=== PATIENT | male | born 1950 | race Caucasian/White ===

== ENCOUNTER 2024-06-01 14:05 | Inpatient (IN) | payer MEDICARE ==
[~2024-06-01] VITALS: Ht 172.7 cm; Wt 97.5 kg
[2024-06-01 17:16] LABS: BASOPHILS # (AUTO) 0.1 (0.0-0.1); BASOPHILS % 0.7 % (0.0-1.0); EOSINOPHILS # (AUTO) 0.5 (0.0-0.4); HEMATOCRIT 35.6 % (38.2-49.6); HEMOGLOBIN 11.2 g/dL (14.0-18.0); LYMPHOCYTES # (AUTO) 1.9 (1.0-3.2); LYMPHOCYTES % 26.2 % (18.0-39.1); MEAN CORPUSCULAR HEMOGLOBIN 35.1 pg (28-32); MEAN CORPUSCULAR HGB CONC 31.5 g/dL (31-35); MEAN CORPUSCULAR VOLUME 111.6 fL (81-99); MONOCYTES # (AUTO) 0.7 (0.2-0.8); MONOCYTES % 9.6 % (4.4-11.3); NEUTROPHILS # (AUTO) 4.2 (2.1-6.9); PLATELET COUNT 138 x10e3/uL (140-360); RED BLOOD COUNT 3.19 x10e6/uL (4.3-5.7); RED CELL DISTRIBUTION WIDTH 14.9 % (11.7-14.4); WHITE BLOOD COUNT 7.41 x10e3/uL (4.8-10.8)
[2024-06-01 17:37] LABS: ALBUMIN 2.9 g/dL (3.5-5.0); ALBUMIN/GLOBULIN RATIO 0.7 (0.8-2.0); ANION GAP 13.8 mmol/L (8-16); BILIRUBIN,TOTAL 2.2 mg/dL (0.2-1.2); CALCIUM 8.8 mg/dL (8.4-10.2); CREATININE, SERUM 1.03 mg/dL (0.72-1.25); POTASSIUM 3.8 mmol/L (3.5-5.1); TOTAL PROTEIN 6.9 g/dL (6.5-8.1)
[2024-06-01 17:45] LABS: TROPONIN I 0.037 ng/mL (0-0.300)
[2024-06-01 18:05] VITALS: TEMP 99.3
[2024-06-01 18:10] VITALS: PULSE 99; RESP 16
[2024-06-01 18:20] LABS: INR 1.29; PROTHROMBIN TIME 16.7 seconds (11.9-14.5)
[2024-06-01 18:50] VITALS: PULSE 98; RESP 20; O2SAT 100
[2024-06-01] MEDS: Morphine 2mg Syringe 2 MG/ML SYR IV PRN (19:15)
[2024-06-01] MEDS: ONDANSETRON HCL INJ 2MG/ML 2ML 2 MG/ML VIAL IV PRN (19:15)
[2024-06-01] MEDS: Vancomycin IV 1.5 GM in SODIUM CHLORIDE 0.9% 250ML 250 ML IV ONE (19:39)
[2024-06-01 20:00] VITALS: BP 141/66; PULSE 88; RESP 18; TEMP 97.2; O2SAT 99
[2024-06-01] MEDS ORDERED: HYDRALAZINE HCL 20 MG/ML VIAL IV PRN ×2 (21:15→21:30)
[2024-06-01] MEDS: FUROSEMIDE INJ 10 MG/ML 4 ML VIAL IV ONE (23:56)
[2024-06-02] VITALS (10 sets, daily range): BP systolic 108–154; BP diastolic 52–71; PULSE 69–102; RESP 16–20; TEMP 97.2–98.9; O2SAT 95–100
[2024-06-02] MEDS ORDERED: VANCOMYCIN 1.25GM/250 ML (PEG) 250 ML IV SCH ×3 (03:15→08:00)
[2024-06-02 06:21] LABS: CHOL/HDL RATIO 2.8 (3.9-4.7)
[2024-06-02 06:27] LABS: TROPONIN I 0.028 ng/mL (0-0.300)
[2024-06-02 06:33] LABS: ALBUMIN 2.8 g/dL (3.5-5.0); ALBUMIN/GLOBULIN RATIO 0.7 (0.8-2.0); BASOPHILS # (AUTO) 0.1 (0.0-0.1); BASOPHILS % 1.3 % (0.0-1.0); BILIRUBIN,TOTAL 2.4 mg/dL (0.2-1.2); CALCIUM 9.9 mg/dL (8.4-10.2); CREATININE, SERUM 1.08 mg/dL (0.72-1.25); EOSINOPHILS # (AUTO) 0.4 (0.0-0.4); EOSINOPHILS % 5.6 % (0.0-6.0); HEMATOCRIT 34.9 % (38.2-49.6); HEMOGLOBIN 11.2 g/dL (14.0-18.0); LYMPHOCYTES # (AUTO) 1.6 (1.0-3.2); LYMPHOCYTES % 20.3 % (18.0-39.1); MEAN CORPUSCULAR HEMOGLOBIN 35.4 pg (28-32); MEAN CORPUSCULAR HGB CONC 32.1 g/dL (31-35); MEAN CORPUSCULAR VOLUME 110.4 fL (81-99); MONOCYTES % 12.2 % (4.4-11.3); NEUTROPHILS # (AUTO) 4.7 (2.1-6.9); NEUTROPHILS % 60.2 % (38.7-80.0); PLATELET COUNT 133 x10e3/uL (140-360); RED BLOOD COUNT 3.16 x10e6/uL (4.3-5.7); RED CELL DISTRIBUTION WIDTH 14.9 % (11.7-14.4); TOTAL PROTEIN 6.8 g/dL (6.5-8.1); WHITE BLOOD COUNT 7.87 x10e3/uL (4.8-10.8)
[2024-06-02] MEDS ORDERED: CARVEDILOL 12.5 MG TAB PO SCH (09:00)
[2024-06-02] MEDS: FUROSEMIDE INJ 10 MG/ML 4 ML VIAL IV SCH (09:56)
[2024-06-02] MEDS: CARVEDILOL 3.125 MG TAB PO SCH (09:57)
[2024-06-02] MEDS: ASPIRIN 81 MG CHEW TAB PO SCH (09:57)
[2024-06-02 11:28] LABS: ANISOCYTOSIS SLIGHT; PLATELET ESTIMATE ADEQUATE; PLATELET MORPHOLOGY COMMENT NORMAL
[2024-06-02 14:58] LABS: POTASSIUM 4.4 mmol/L (3.5-5.1)
[2024-06-02 14:59] LABS: ANION GAP 19.4 mmol/L (8-16)
[2024-06-02] MEDS: VANCOMYCIN 1.25GM/250 ML (PEG) 250 ML IV SCH (15:48)
[2024-06-02] MEDS: ENOXAPARIN SOD INJ 40 MG/0.4 ML SYR SC SCH (16:56)
[2024-06-02] MEDS: ACETAMINOPHEN 325 MG TAB PO PRN (18:03)
[2024-06-03] VITALS (7 sets, daily range): BP systolic 118–144; BP diastolic 55–73; PULSE 75–94; RESP 17–20; TEMP 98.1–99.4; O2SAT 96–99
[2024-06-03] MEDS: TRAMADOL HCL 50 MG TAB PO PRN (04:52)
[2024-06-03 06:20] LABS: BASOPHILS # (AUTO) 0.1 (0.0-0.1); BASOPHILS % 1.2 % (0.0-1.0); EOSINOPHILS # (AUTO) 0.4 (0.0-0.4); EOSINOPHILS % 6.1 % (0.0-6.0); HEMOGLOBIN 11.3 g/dL (14.0-18.0); LYMPHOCYTES # (AUTO) 1.2 (1.0-3.2); LYMPHOCYTES % 16.4 % (18.0-39.1); MEAN CORPUSCULAR HEMOGLOBIN 35.8 pg (28-32); MEAN CORPUSCULAR HGB CONC 32.3 g/dL (31-35); MEAN CORPUSCULAR VOLUME 110.8 fL (81-99); MONOCYTES # (AUTO) 0.8 (0.2-0.8); MONOCYTES % 10.3 % (4.4-11.3); NEUTROPHILS # (AUTO) 4.8 (2.1-6.9); NEUTROPHILS % 65.6 % (38.7-80.0); PLATELET COUNT 110 x10e3/uL (140-360); RED BLOOD COUNT 3.16 x10e6/uL (4.3-5.7); RED CELL DISTRIBUTION WIDTH 14.7 % (11.7-14.4); WHITE BLOOD COUNT 7.27 x10e3/uL (4.8-10.8)
[2024-06-03 06:33] LABS: CALCIUM 8.7 mg/dL (8.4-10.2); CREATININE, SERUM 1.39 mg/dL (0.72-1.25)
[2024-06-03 08:53] LABS: PLATELET ESTIMATE ADEQUATE; PLATELET MORPHOLOGY COMMENT NORMAL; RBC MORPHOLOGY COMMENT NORMAL
[2024-06-04] VITALS (8 sets, daily range): BP systolic 124–132; BP diastolic 59–81; PULSE 53–86; RESP 18–20; TEMP 97.7–98.6; O2SAT 95–100
[2024-06-04 06:29] LABS: ANION GAP 13.7 mmol/L (8-16); CALCIUM 8.3 mg/dL (8.4-10.2); CREATININE, SERUM 1.56 mg/dL (0.72-1.25); POTASSIUM 3.7 mmol/L (3.5-5.1)
[2024-06-04] MEDS: FUROSEMIDE 20 MG TAB PO SCH (08:52)
[2024-06-04] MEDS: DAPTOMYCIN 500mg 10ML 500 MG in SODIUM CHLORIDE 0.9% 100 ML IV SCH (11:40)
[2024-06-04] MEDS: SODIUM CHLORIDE 0.9% 250ML 250 ML IV ONE (11:41)
[2024-06-05] VITALS (7 sets, daily range): BP systolic 123–139; BP diastolic 46–66; PULSE 75–83; RESP 20–22; TEMP 97.9–98.5; O2SAT 92–100
[2024-06-05 06:27] LABS: BASOPHILS # (AUTO) 0.1 (0.0-0.1); BASOPHILS % 1.3 % (0.0-1.0); EOSINOPHILS # (AUTO) 0.4 (0.0-0.4); EOSINOPHILS % 5.6 % (0.0-6.0); HEMATOCRIT 32.5 % (38.2-49.6); HEMOGLOBIN 10.5 g/dL (14.0-18.0); LYMPHOCYTES # (AUTO) 1.6 (1.0-3.2); LYMPHOCYTES % 22.9 % (18.0-39.1); MEAN CORPUSCULAR HEMOGLOBIN 35.7 pg (28-32); MEAN CORPUSCULAR HGB CONC 32.3 g/dL (31-35); MEAN CORPUSCULAR VOLUME 110.5 fL (81-99); MONOCYTES # (AUTO) 0.7 (0.2-0.8); MONOCYTES % 10.7 % (4.4-11.3); NEUTROPHILS % 59.1 % (38.7-80.0); PLATELET COUNT 107 x10e3/uL (140-360); RED BLOOD COUNT 2.94 x10e6/uL (4.3-5.7); RED CELL DISTRIBUTION WIDTH 14.8 % (11.7-14.4); WHITE BLOOD COUNT 6.82 x10e3/uL (4.8-10.8)
[2024-06-05 06:55] LABS: ALBUMIN 2.3 g/dL (3.5-5.0); ALBUMIN/GLOBULIN RATIO 0.6 (0.8-2.0); BILIRUBIN,TOTAL 1.3 mg/dL (0.2-1.2); CALCIUM 8.3 mg/dL (8.4-10.2); CREATININE, SERUM 1.19 mg/dL (0.72-1.25); TOTAL PROTEIN 6.1 g/dL (6.5-8.1)
[2024-06-05] MEDS: LEVOFLOXACIN 500 MG TAB PO SCH (13:23)
[2024-06-05] MEDS: DOCUSATE SODIUM 100 MG CAP PO SCH (13:27)
[2024-06-05] MEDS: BISACODYL 5 MG TAB EC PO ONE (13:27)
[2024-06-05] MEDS: ONDANSETRON HCL INJ 2MG/ML 2ML 2 MG/ML VIAL IV PRN (20:06)
[2024-06-06] VITALS (9 sets, daily range): BP systolic 117–142; BP diastolic 48–65; PULSE 65–78; RESP 18–21; TEMP 97.3–98.5; O2SAT 93–100
[2024-06-06 07:45] LABS: HEPATITIS B CORE AB TOTAL Negative; HEPATITIS B SURFACE AG (P) Negative
[2024-06-06] MEDS ORDERED: FENTANYL CITRATE/PF 100MCG/2 ML INJ ONE (14:01)
[2024-06-06] MEDS ORDERED: PROPOFOL IV EMULSION 10 MG/ML 20 ML VIAL ONE ×2 (16:07→16:54)
[2024-06-06] MEDS: FENTANYL CITRATE/PF 100MCG/2 ML INJ ONE (16:47)
[2024-06-06] MEDS ORDERED: LIDOCAINE HCL 2% LOCAL INJ 5 ML SDV VIAL INJ ONE (16:54)
[2024-06-06] MEDS ORDERED: SEVOFLURANE INHAL SOLN 250 ML PEN BTL ONE (16:54)
[2024-06-07] VITALS (8 sets, daily range): BP systolic 120–136; BP diastolic 49–67; PULSE 61–72; RESP 17–20; TEMP 97–97.9; O2SAT 94–100
[2024-06-07] MEDS: FUROSEMIDE 20 MG TAB PO SCH (12:00)
[2024-06-08] VITALS (7 sets, daily range): BP systolic 92–146; BP diastolic 33–71; PULSE 60–118; RESP 17–20; TEMP 97.6–98.7; O2SAT 95–100
[2024-06-08 05:09] LABS: BASOPHILS # (AUTO) 0.1 (0.0-0.1); BASOPHILS % 0.9 % (0.0-1.0); EOSINOPHILS # (AUTO) 0.6 (0.0-0.4); EOSINOPHILS % 7.4 % (0.0-6.0); HEMATOCRIT 31.8 % (38.2-49.6); HEMOGLOBIN 10.2 g/dL (14.0-18.0); LYMPHOCYTES # (AUTO) 1.6 (1.0-3.2); LYMPHOCYTES % 18.7 % (18.0-39.1); MEAN CORPUSCULAR HEMOGLOBIN 35.7 pg (28-32); MEAN CORPUSCULAR HGB CONC 32.1 g/dL (31-35); MEAN CORPUSCULAR VOLUME 111.2 fL (81-99); MONOCYTES # (AUTO) 0.7 (0.2-0.8); MONOCYTES % 8.4 % (4.4-11.3); NEUTROPHILS # (AUTO) 5.4 (2.1-6.9); NEUTROPHILS % 64.4 % (38.7-80.0); PLATELET COUNT 116 x10e3/uL (140-360); RED BLOOD COUNT 2.86 x10e6/uL (4.3-5.7); RED CELL DISTRIBUTION WIDTH 14.5 % (11.7-14.4); WHITE BLOOD COUNT 8.43 x10e3/uL (4.8-10.8)
[2024-06-08 05:54] LABS: ALBUMIN 2.4 g/dL (3.5-5.0); ALBUMIN/GLOBULIN RATIO 0.6 (0.8-2.0); ANION GAP 10.2 mmol/L (8-16); BILIRUBIN,TOTAL 0.9 mg/dL (0.2-1.2); CALCIUM 8.6 mg/dL (8.4-10.2); CREATININE, SERUM 1.28 mg/dL (0.72-1.25); POTASSIUM 4.2 mmol/L (3.5-5.1); TOTAL PROTEIN 6.5 g/dL (6.5-8.1)
[2024-06-08] MEDS ORDERED: ASPIRIN CHEW81 MG PO (11:07)
[2024-06-08] MEDS ORDERED: LEVOFLOXACIN500 MG PO (11:07)
[2024-06-08] MEDS ORDERED: DOXYCYCLINE HY100 MG PO (11:07)
[2024-06-08] MEDS ORDERED: COREG3.125 MG PO (11:07)
[2024-06-08] MEDS ORDERED: LASIX20 MG PO (11:10)
[2024-06-09] VITALS (7 sets, daily range): BP systolic 108–149; BP diastolic 52–66; PULSE 63–77; RESP 17–20; TEMP 97.9–98.6; O2SAT 95–100
[2024-06-09 05:48] LABS: ANION GAP 12.4 mmol/L (8-16); CALCIUM 8.6 mg/dL (8.4-10.2); CREATININE, SERUM 1.34 mg/dL (0.72-1.25); POTASSIUM 4.4 mmol/L (3.5-5.1)
[2024-06-09] MEDS: SODIUM CHLORIDE 0.9% 250ML 250 ML ONE (09:47)
[2024-06-09] MEDS: HYDROCODONE/APAP 5MG-325MG TAB PO PRN (13:59)
[2024-06-09] MEDS: GABAPENTIN 100 MG CAP PO SCH (14:00)
[2024-06-10] VITALS (7 sets, daily range): BP systolic 124–136; BP diastolic 46–65; PULSE 63–72; RESP 17–20; TEMP 97.8–99.6; O2SAT 93–100
[2024-06-10 05:17] LABS: HEMATOCRIT 35.3 % (38.2-49.6); HEMOGLOBIN 10.8 g/dL (14.0-18.0); MEAN CORPUSCULAR HEMOGLOBIN 35.4 pg (28-32); MEAN CORPUSCULAR HGB CONC 30.6 g/dL (31-35); MEAN CORPUSCULAR VOLUME 115.7 fL (81-99); PLATELET COUNT 100 x10e3/uL (140-360); RED BLOOD COUNT 3.05 x10e6/uL (4.3-5.7); RED CELL DISTRIBUTION WIDTH 14.7 % (11.7-14.4)
[2024-06-10 05:50] LABS: ALBUMIN 2.2 g/dL (3.5-5.0); ALBUMIN/GLOBULIN RATIO 0.6 (0.8-2.0); BILIRUBIN,TOTAL 1.3 mg/dL (0.2-1.2); CALCIUM 8.7 mg/dL (8.4-10.2); CREATININE, SERUM 1.36 mg/dL (0.72-1.25)
[2024-06-10 06:30] LABS: BASOPHILS % (MANUAL) 1 % (0-1.5); EOSINOPHILS % (MANUAL) 10 % (0-7); LYMPHOCYTES % (MANUAL) 31 % (19-48); MONOCYTES % (MANUAL) 3 % (3.4-9.0); NEUTROPHILS % (MANUAL) 54 % (40-74); REACTIVE LYMPHOCYTES 1
[2024-06-10 06:31] LABS: HYPOCHROMASIA SLIGHT; PLATELET ESTIMATE ADEQUATE; PLATELET MORPHOLOGY COMMENT NORMAL; RBC MORPHOLOGY COMMENT ABNORMAL; SPHEROCYTES MODERATE
[2024-06-10] MEDS ORDERED: LACTULOSE SYRUP 20 GM/30 ML UDC PO PRN (13:15)
[2024-06-10] MEDS: POLYETHYLENE GLYCOL 3350 17 GM PACK PO ONE (14:49)
[2024-06-11] VITALS (9 sets, daily range): BP systolic 103–156; BP diastolic 46–69; PULSE 61–71; RESP 18–21; TEMP 98–99.6; O2SAT 96–100
[2024-06-11] MEDS: ENOXAPARIN SOD INJ 40 MG/0.4 ML SYR SC SCH (16:49)
[2024-06-11] MEDS ORDERED: MAGNESIUM/ALUMINUM/SIMETHICONE 30 ML UDC PO PRN (22:00)
[2024-06-12] VITALS (8 sets, daily range): BP systolic 116–154; BP diastolic 49–60; PULSE 62–81; RESP 17–20; TEMP 98.1–98.7; O2SAT 95–99
[2024-06-13] VITALS (8 sets, daily range): BP systolic 112–135; BP diastolic 43–80; PULSE 51–97; RESP 15–20; TEMP 97.7–98.9; O2SAT 97–100
[2024-06-13] MEDS: DAPTOMYCIN 500mg 10ML 500 MG in SODIUM CHLORIDE 0.9% 100 ML IV SCH (16:59)
[2024-06-14] VITALS (8 sets, daily range): BP systolic 123–138; BP diastolic 52–75; PULSE 63–66; RESP 16–20; TEMP 97.8–99.2; O2SAT 95–100
[2024-06-14 05:30] LABS: HEMATOCRIT 32.3 % (38.2-49.6); HEMOGLOBIN 10.2 g/dL (14.0-18.0); MEAN CORPUSCULAR HEMOGLOBIN 35.1 pg (28-32); MEAN CORPUSCULAR HGB CONC 31.6 g/dL (31-35); PLATELET COUNT 112 x10e3/uL (140-360); RED BLOOD COUNT 2.91 x10e6/uL (4.3-5.7); RED CELL DISTRIBUTION WIDTH 14.6 % (11.7-14.4); WHITE BLOOD COUNT 6.96 x10e3/uL (4.8-10.8)
[2024-06-14 06:01] LABS: ALBUMIN 2.2 g/dL (3.5-5.0); ALBUMIN/GLOBULIN RATIO 0.6 (0.8-2.0); ANION GAP 10.4 mmol/L (8-16); BILIRUBIN,TOTAL 1.2 mg/dL (0.2-1.2); CALCIUM 8.5 mg/dL (8.4-10.2); CREATININE, SERUM 1.41 mg/dL (0.72-1.25); POTASSIUM 4.4 mmol/L (3.5-5.1); TOTAL PROTEIN 5.9 g/dL (6.5-8.1)
[2024-06-14 10:09] LABS: BASOPHILS % (MANUAL) 1 % (0-1.5); EOSINOPHILS % (MANUAL) 18 % (0-7); LYMPHOCYTES % (MANUAL) 23 % (19-48); MONOCYTES % (MANUAL) 6 % (3.4-9.0); NEUTROPHILS % (MANUAL) 52 % (40-74)
[2024-06-14 10:10] LABS: PLATELET ESTIMATE SLIGHTLY DECREASED; PLATELET MORPHOLOGY COMMENT NORMAL; RBC MORPHOLOGY COMMENT NORMAL
[2024-06-14] MEDS ORDERED: GABAPENTIN100 MG PO (12:45)
[2024-06-14] MEDS ORDERED: ULTRAM 50MG50 MG PO (12:45)
[2024-06-15] VITALS (7 sets, daily range): BP systolic 111–129; BP diastolic 57–66; PULSE 62–76; RESP 18–21; TEMP 97.7–99.3; O2SAT 95–99
[2024-06-15 06:21] LABS: ANION GAP 12.3 mmol/L (8-16); CALCIUM 8.7 mg/dL (8.4-10.2); CREATININE, SERUM 1.5 mg/dL (0.72-1.25); POTASSIUM 4.3 mmol/L (3.5-5.1)
[2024-06-16] VITALS (7 sets, daily range): BP systolic 116–142; BP diastolic 41–76; PULSE 53–72; RESP 18–22; TEMP 97.6–99.8; O2SAT 97–98
[2024-06-16] MEDS: AMOXICILLIN/CLAVULANATE K 875 MG TAB PO SCH (10:02)
[2024-06-16] MEDS: TRAMADOL HCL 50 MG TAB PO PRN (15:48)
[2024-06-17] VITALS (7 sets, daily range): BP systolic 113–148; BP diastolic 47–64; PULSE 56–69; RESP 18–19; TEMP 97.7–98.8; O2SAT 97–100
[2024-06-17 06:21] LABS: HEMATOCRIT 32.5 % (38.2-49.6); HEMOGLOBIN 10.1 g/dL (14.0-18.0); MEAN CORPUSCULAR HEMOGLOBIN 34.9 pg (28-32); MEAN CORPUSCULAR HGB CONC 31.1 g/dL (31-35); MEAN CORPUSCULAR VOLUME 112.5 fL (81-99); PLATELET COUNT 111 x10e3/uL (140-360); RED BLOOD COUNT 2.89 x10e6/uL (4.3-5.7); RED CELL DISTRIBUTION WIDTH 14.4 % (11.7-14.4); WHITE BLOOD COUNT 7.05 x10e3/uL (4.8-10.8)
[2024-06-17 07:15] LABS: ALBUMIN 2.3 g/dL (3.5-5.0); ALBUMIN/GLOBULIN RATIO 0.6 (0.8-2.0); ANION GAP 12.3 mmol/L (8-16); BILIRUBIN,TOTAL 1.2 mg/dL (0.2-1.2); CALCIUM 8.5 mg/dL (8.4-10.2); CREATININE, SERUM 1.49 mg/dL (0.72-1.25); POTASSIUM 4.3 mmol/L (3.5-5.1)
[2024-06-17 10:25] LABS: RBC MORPHOLOGY COMMENT ABNORMAL
[2024-06-17 10:26] LABS: PLATELET ESTIMATE SLIGHTLY DECREASED; PLATELET MORPHOLOGY COMMENT NORMAL
[2024-06-17] MEDS: TRAMADOL HCL 50 MG TAB PO PRN (15:50)
[2024-06-18] VITALS (12 sets, daily range): BP systolic 118–141; BP diastolic 50–72; PULSE 58–72; RESP 16–22; TEMP 98–99; O2SAT 94–100
[2024-06-18] MEDS: FUROSEMIDE INJ 10 MG/ML 4 ML VIAL IV ONE (15:47)
[2024-06-18] MEDS: ALBUTEROL SULF 0.083% NEB SOLN 3 ML NEB NEB PRN (15:49)
[2024-06-18] MEDS ORDERED: ONDANSETRON HCL 4 MG ORAL DISINTEGRATING TAB PO PRN (19:00)
[2024-06-19] VITALS (10 sets, daily range): BP systolic 110–137; BP diastolic 44–63; PULSE 58–79; RESP 18–20; TEMP 97.8–99.6; O2SAT 96–100
[2024-06-19] MEDS: FUROSEMIDE INJ 10 MG/ML 4 ML VIAL IV ONE (00:03)
[2024-06-19] MEDS: IPRATROPIUM BROMIDE 0.02% 2.5 ML NEB NEB SCH (07:39)
[2024-06-19] MEDS: FUROSEMIDE INJ 10 MG/ML 4 ML VIAL IV SCH (08:31)
[2024-06-19] MEDS ORDERED: LASIX20 MG PO (10:19)
[2024-06-19] MEDS: LINEZOLID 600 MG TAB PO SCH (12:21)
[2024-06-19] MEDS: LEVOFLOXACIN 500 MG TAB PO SCH (12:21)
== END 2024-06-19 19:15 | DRG 264 ==
LOC: ER 15:48 → ERHOLD 18:24 → MED/SURG3 23:11
PROVIDERS: ADMIT Internal Medicine; ATTEND Internal Medicine
PROC: 0JBN0ZZ Excision of Right Lower Leg Subcutaneous Tissue and Fascia, Open Approach (ICD-10-PCS; principal; 2024-06-06 15:44)
DX: I96 Gangrene, not elsewhere classified (principal); I50.32 Chronic diastolic (congestive) heart failure; L03.115 Cellulitis of right lower limb; N17.9 Acute kidney failure, unspecified; L03.116 Cellulitis of left lower limb; L97.818 Non-pressure chronic ulcer of other part of right lower leg with other specified severity; D69.6 Thrombocytopenia, unspecified; I83.018 Varicose veins of right lower extremity with ulcer other part of lower leg; I83.029 Varicose veins of left lower extremity with ulcer of unspecified site; B96.5 Pseudomonas (aeruginosa) (mallei) (pseudomallei) as the cause of diseases classified elsewhere; B95.2 Enterococcus as the cause of diseases classified elsewhere; B95.5 Unspecified streptococcus as the cause of diseases classified elsewhere; I35.0 Nonrheumatic aortic (valve) stenosis; R01.1 Cardiac murmur, unspecified; E87.70 Fluid overload, unspecified; E66.9 Obesity, unspecified; R53.81 Other malaise; Z68.32 Body mass index [BMI] 32.0-32.9, adult; I11.0 Hypertensive heart disease with heart failure; K59.00 Constipation, unspecified; Z89.422 Acquired absence of other left toe(s); Z88.7 Allergy status to serum and vaccine
CPT/HCPCS: 36415; 71045; 80048; 80053; 80061; 80202; 82550; 83036; 83735; 83880; 84484; 85007; 85025; 85027; 85610; 85730; 86704; 86708; 87040; 87071; 87075; 87186; 87205; 87340; 87522; 88304; 93005; 93306; 93970; 94640; 94799; 99252; 99284; J0692; J1650; J1940; J2001; J2270; J2405; J2543; J7050

== ENCOUNTER 2024-07-06 18:15 | Inpatient (IN) | payer MEDICARE ==
[~2024-07-06] VITALS: Ht 172.7 cm; Wt 97.5 kg
[~2024-07-06 18:15] MED LIST: ASPIRIN CHEW81 MG PO; COREG3.125 MG PO; DOXYCYCLINE HY100 MG PO; GABAPENTIN100 MG PO; LASIX20 MG PO; LEVOFLOXACIN500 MG PO; ULTRAM 50MG50 MG PO
[2024-07-06 18:30] VITALS: TEMP 98.1
[2024-07-06 19:15] VITALS: PULSE 85; RESP 19
[2024-07-06 19:34] LABS: BASOPHILS # (AUTO) 0.1 (0.0-0.1); BASOPHILS % 0.9 % (0.0-1.0); EOSINOPHILS # (AUTO) 1.9 (0.0-0.4); EOSINOPHILS % 25.6 % (0.0-6.0); HEMATOCRIT 22.4 % (38.2-49.6); LYMPHOCYTES # (AUTO) 2.1 (1.0-3.2); LYMPHOCYTES % 27.8 % (18.0-39.1); MEAN CORPUSCULAR HEMOGLOBIN 34.2 pg (28-32); MEAN CORPUSCULAR HGB CONC 30.8 g/dL (31-35); MEAN CORPUSCULAR VOLUME 110.9 fL (81-99); MONOCYTES # (AUTO) 0.8 (0.2-0.8); NEUTROPHILS # (AUTO) 2.6 (2.1-6.9); NEUTROPHILS % 34.3 % (38.7-80.0); RED BLOOD COUNT 2.02 x10e6/uL (4.3-5.7); RED CELL DISTRIBUTION WIDTH 13.2 % (11.7-14.4); WHITE BLOOD COUNT 7.55 x10e3/uL (4.8-10.8)
[2024-07-06 19:38] LABS: HEMOGLOBIN 6.9 g/dL (14.0-18.0); PLATELET COUNT 87 x10e3/uL (140-360)
[2024-07-06 19:56] LABS: ALBUMIN 2.6 g/dL (3.5-5.0); ALBUMIN/GLOBULIN RATIO 0.7 (0.8-2.0); ANION GAP 12.5 mmol/L (8-16); BILIRUBIN,TOTAL 1.3 mg/dL (0.2-1.2); CALCIUM 8.8 mg/dL (8.4-10.2); CREATININE, SERUM 1.45 mg/dL (0.72-1.25); POTASSIUM 4.5 mmol/L (3.5-5.1); TOTAL PROTEIN 6.2 g/dL (6.5-8.1)
[2024-07-06 20:19] LABS: BASOPHILS % (MANUAL) 2 % (0-1.5); EOSINOPHILS % (MANUAL) 25 % (0-7); HYPOCHROMASIA SLIGHT; LYMPHOCYTES % (MANUAL) 28 % (19-48); MONOCYTES % (MANUAL) 6 % (3.4-9.0); NEUTROPHILS % (MANUAL) 39 % (40-74); PLATELET ESTIMATE MODERATELY DECREASED; PLATELET MORPHOLOGY COMMENT NORMAL
[2024-07-06 20:20] LABS: RBC MORPHOLOGY COMMENT NORMAL
[2024-07-06 21:00] VITALS: PULSE 86; RESP 20; TEMP 98.5; O2SAT 99
[2024-07-06] MEDS: FUROSEMIDE INJ 10 MG/ML 4 ML VIAL IV SCH (21:12)
[2024-07-06 21:19] VITALS: PULSE 86; RESP 20; O2SAT 99
[2024-07-06 22:00] VITALS: BP 157/84; PULSE 86; RESP 20; TEMP 98.5; O2SAT 99
[2024-07-07] VITALS (10 sets, daily range): BP systolic 109–144; BP diastolic 47–85; PULSE 76–95; RESP 16–20; TEMP 98.4–98.8; O2SAT 96–100
[2024-07-07] MEDS: SODIUM CHLORIDE 0.9% 250ML 250 ML ONE (00:16)
[2024-07-07] MEDS ORDERED: HYDRALAZINE HCL 20 MG/ML VIAL IV PRN (02:15)
[2024-07-07] MEDS ORDERED: MAGNESIUM/ALUMINUM/SIMETHICONE 30 ML UDC PO PRN (02:15)
[2024-07-07] MEDS ORDERED: Vancomycin IV 1 GM in SODIUM CHLORIDE 0.9% 250ML 250 ML IV SCH (02:15)
[2024-07-07] MEDS ORDERED: ONDANSETRON HCL INJ 2MG/ML 2ML 2 MG/ML VIAL IV PRN (02:15)
[2024-07-07] MEDS ORDERED: GUAIFENESIN/DEXTROMETHORPHAN LIQD 5 ML UDC PO PRN (02:15)
[2024-07-07] MEDS ORDERED: ALBUTEROL SULF 0.083% NEB SOLN 3 ML NEB NEB PRN (02:15)
[2024-07-07] MEDS: SODIUM CHLORIDE 0.9% 250ML 250 ML IV ONE (03:06)
[2024-07-07 05:04] LABS: FERRITIN 311.63 ng/mL (21.81-274.66)
[2024-07-07 05:18] LABS: FOLATE 7.7 ng/mL (7.0-15.4)
[2024-07-07 08:56] LABS: BASOPHILS # (AUTO) 0.1 (0.0-0.1); BASOPHILS % 1.1 % (0.0-1.0); EOSINOPHILS # (AUTO) 1.7 (0.0-0.4); EOSINOPHILS % 24.3 % (0.0-6.0); HEMOGLOBIN 7.2 g/dL (14.0-18.0); LYMPHOCYTES # (AUTO) 2.4 (1.0-3.2); LYMPHOCYTES % 34.2 % (18.0-39.1); MEAN CORPUSCULAR HEMOGLOBIN 33.8 pg (28-32); MEAN CORPUSCULAR HGB CONC 31.3 g/dL (31-35); MONOCYTES # (AUTO) 0.7 (0.2-0.8); MONOCYTES % 10.2 % (4.4-11.3); NEUTROPHILS # (AUTO) 2.1 (2.1-6.9); NEUTROPHILS % 29.9 % (38.7-80.0); PLATELET COUNT 85 x10e3/uL (140-360); RED BLOOD COUNT 2.13 x10e6/uL (4.3-5.7); RED CELL DISTRIBUTION WIDTH 16.1 % (11.7-14.4); WHITE BLOOD COUNT 7.04 x10e3/uL (4.8-10.8)
[2024-07-07 09:08] LABS: INR 1.45; PROTHROMBIN TIME 18.4 seconds (11.9-14.5)
[2024-07-07 09:09] LABS: PARTIAL THROMBOPLASTIN TIME 43.4 seconds (23.8-35.5)
[2024-07-07 09:14] LABS: ALBUMIN 2.5 g/dL (3.5-5.0); ALBUMIN/GLOBULIN RATIO 0.7 (0.8-2.0); ANION GAP 14.2 mmol/L (8-16); BILIRUBIN,TOTAL 2.1 mg/dL (0.2-1.2); CALCIUM 8.8 mg/dL (8.4-10.2); CREATININE, SERUM 1.38 mg/dL (0.72-1.25); POTASSIUM 4.2 mmol/L (3.5-5.1); TOTAL PROTEIN 5.9 g/dL (6.5-8.1)
[2024-07-07 09:20] LABS: TROPONIN I 0.026 ng/mL (0-0.300)
[2024-07-07] MEDS: TRAMADOL HCL 50 MG TAB PO PRN (09:45)
[2024-07-07] MEDS: DOCUSATE SODIUM 100 MG CAP PO SCH (09:45)
[2024-07-07] MEDS: CARVEDILOL 3.125 MG TAB PO SCH (09:46)
[2024-07-07] MEDS: GABAPENTIN 100 MG CAP PO SCH (09:46)
[2024-07-07] MEDS: MULTIVITAMINS/MINERALS TAB PO SCH (09:46)
[2024-07-07] MEDS: Vancomycin IV 1 GM in SODIUM CHLORIDE 0.9% 250ML 250 ML IV SCH (09:48)
[2024-07-07 09:54] LABS: EOSINOPHILS % (MANUAL) 33 % (0-7); LYMPHOCYTES % (MANUAL) 33 % (19-48); MONOCYTES % (MANUAL) 7 % (3.4-9.0); NEUTROPHILS % (MANUAL) 27 % (40-74)
[2024-07-07 09:55] LABS: PLATELET ESTIMATE MODERATELY DECREASED; PLATELET MORPHOLOGY COMMENT NORMAL; RBC MORPHOLOGY COMMENT NORMAL
[2024-07-07] MEDS: IRON SUCROSE 100 MG in SODIUM CHLORIDE 0.9% 100 ML IV SCH (10:00)
[2024-07-07] MEDS: AMOXICILLIN/CLAVULANATE K 875 MG TAB PO SCH (20:16)
[2024-07-07] MEDS: LEVOFLOXACIN 500 MG TAB PO SCH (20:23)
[2024-07-08] VITALS (11 sets, daily range): BP systolic 97–123; BP diastolic 47–72; PULSE 61–87; RESP 16–20; TEMP 97.5–99; O2SAT 94–100
[2024-07-08 05:51] LABS: HEMATOCRIT 22.4 % (38.2-49.6); MEAN CORPUSCULAR HEMOGLOBIN 33.5 pg (28-32); MEAN CORPUSCULAR HGB CONC 31.3 g/dL (31-35); MEAN CORPUSCULAR VOLUME 107.2 fL (81-99); PLATELET COUNT 78 x10e3/uL (140-360); RED BLOOD COUNT 2.09 x10e6/uL (4.3-5.7); RED CELL DISTRIBUTION WIDTH 15.9 % (11.7-14.4); WHITE BLOOD COUNT 5.34 x10e3/uL (4.8-10.8)
[2024-07-08 06:05] LABS: ALBUMIN 2.6 g/dL (3.5-5.0); ALBUMIN/GLOBULIN RATIO 0.8 (0.8-2.0); ANION GAP 13.2 mmol/L (8-16); BILIRUBIN,TOTAL 1.6 mg/dL (0.2-1.2); CALCIUM 8.7 mg/dL (8.4-10.2); CREATININE, SERUM 1.52 mg/dL (0.72-1.25); POTASSIUM 4.2 mmol/L (3.5-5.1)
[2024-07-08 06:16] LABS: TROPONIN I 0.019 ng/mL (0-0.300)
[2024-07-08] MEDS: CYANOCOBALAMIN INJ 1,000 MCG/ML VIAL IM SCH (08:13)
[2024-07-08] MEDS: SODIUM CHLORIDE 0.9% 250ML 250 ML IV ONE (08:15)
[2024-07-08 11:28] LABS: ANISOCYTOSIS SLIGHT; BASOPHILS % (MANUAL) 1 % (0-1.5); EOSINOPHILS % (MANUAL) 25 % (0-7); LYMPHOCYTES % (MANUAL) 25 % (19-48); MONOCYTES % (MANUAL) 8 % (3.4-9.0); NEUTROPHILS % (MANUAL) 41 % (40-74); PLATELET ESTIMATE MODERATELY DECREASED; PLATELET MORPHOLOGY COMMENT NORMAL; RBC MORPHOLOGY COMMENT NORMAL
[2024-07-08] MEDS: SALINE 0.65% NAS SOLN 1 SPRAY BTL SCH (16:40)
[2024-07-08] MEDS: ACETAMINOPHEN 325 MG TAB PO PRN (23:10)
[2024-07-09] VITALS (10 sets, daily range): BP systolic 122–171; BP diastolic 54–79; PULSE 68–86; RESP 16–20; TEMP 97.8–98.5; O2SAT 94–100
[2024-07-09 06:01] LABS: BASOPHILS % 0.6 % (0.0-1.0); EOSINOPHILS # (AUTO) 1.5 (0.0-0.4); EOSINOPHILS % 31.5 % (0.0-6.0); HEMATOCRIT 23.4 % (38.2-49.6); HEMOGLOBIN 7.4 g/dL (14.0-18.0); LYMPHOCYTES # (AUTO) 1.3 (1.0-3.2); LYMPHOCYTES % 27.7 % (18.0-39.1); MEAN CORPUSCULAR HEMOGLOBIN 32.7 pg (28-32); MEAN CORPUSCULAR HGB CONC 31.6 g/dL (31-35); MEAN CORPUSCULAR VOLUME 103.5 fL (81-99); MONOCYTES # (AUTO) 0.5 (0.2-0.8); MONOCYTES % 10.9 % (4.4-11.3); NEUTROPHILS # (AUTO) 1.4 (2.1-6.9); NEUTROPHILS % 29.1 % (38.7-80.0); PLATELET COUNT 77 x10e3/uL (140-360); RED BLOOD COUNT 2.26 x10e6/uL (4.3-5.7); RED CELL DISTRIBUTION WIDTH 17.3 % (11.7-14.4)
[2024-07-09 06:11] LABS: ANION GAP 14.9 mmol/L (8-16); CALCIUM 8.7 mg/dL (8.4-10.2); CREATININE, SERUM 1.42 mg/dL (0.72-1.25); MAGNESIUM 1.8 MG/DL (1.3-2.1); POTASSIUM 3.9 mmol/L (3.5-5.1)
[2024-07-09 08:25] LABS: BASOPHILS % (MANUAL) 1 % (0-1.5); EOSINOPHILS % (MANUAL) 31 % (0-7); LYMPHOCYTES % (MANUAL) 23 % (19-48); METAMYELOCYTES % (MANUAL) 1 % (0-0); MONOCYTES % (MANUAL) 5 % (3.4-9.0); NEUTROPHILS % (MANUAL) 39 % (40-74); PLATELET ESTIMATE MODERATELY DECREASED; PLATELET MORPHOLOGY COMMENT NORMAL; RBC MORPHOLOGY COMMENT NORMAL
[2024-07-09] MEDS: FUROSEMIDE INJ 10 MG/ML 4 ML VIAL IV SCH (08:45)
[2024-07-09] MEDS: COLLAGENASE 5 GM TUBE TOP SCH (15:29)
[2024-07-09] MEDS: POLYETHYLENE GLYCOL 3350 17 GM PACK PO PRN (21:07)
[2024-07-10] VITALS (10 sets, daily range): BP systolic 123–147; BP diastolic 50–70; PULSE 70–87; RESP 18–20; TEMP 97.7–98.3; O2SAT 97–100
[2024-07-10 06:38] LABS: BASOPHILS % 0.7 % (0.0-1.0); EOSINOPHILS # (AUTO) 1.3 (0.0-0.4); EOSINOPHILS % 30.4 % (0.0-6.0); HEMATOCRIT 25.2 % (38.2-49.6); LYMPHOCYTES # (AUTO) 1.3 (1.0-3.2); LYMPHOCYTES % 30.4 % (18.0-39.1); MEAN CORPUSCULAR HEMOGLOBIN 33.1 pg (28-32); MEAN CORPUSCULAR HGB CONC 31.7 g/dL (31-35); MEAN CORPUSCULAR VOLUME 104.1 fL (81-99); MONOCYTES # (AUTO) 0.4 (0.2-0.8); MONOCYTES % 9.7 % (4.4-11.3); NEUTROPHILS # (AUTO) 1.2 (2.1-6.9); NEUTROPHILS % 28.6 % (38.7-80.0); PLATELET COUNT 83 x10e3/uL (140-360); RED BLOOD COUNT 2.42 x10e6/uL (4.3-5.7); RED CELL DISTRIBUTION WIDTH 16.5 % (11.7-14.4); WHITE BLOOD COUNT 4.34 x10e3/uL (4.8-10.8)
[2024-07-10 11:32] LABS: EOSINOPHILS % (MANUAL) 30 % (0-7); LYMPHOCYTES % (MANUAL) 24 % (19-48); MONOCYTES % (MANUAL) 6 % (3.4-9.0); NEUTROPHILS % (MANUAL) 40 % (40-74)
[2024-07-10 11:33] LABS: HYPOCHROMASIA SLIGHT; PLATELET ESTIMATE MODERATELY DECREASED; PLATELET MORPHOLOGY COMMENT FEW LARGE
[2024-07-10] MEDS ORDERED: ONDANSETRON HCL 4 MG ORAL DISINTEGRATING TAB PO PRN (12:00)
[2024-07-10] MEDS: PANTOPRAZOLE SOD 40 MG TABEC PO SCH (15:30)
[2024-07-11] VITALS (10 sets, daily range): BP systolic 121–158; BP diastolic 53–69; PULSE 66–83; RESP 18–20; TEMP 97.7–98.5; O2SAT 91–97
[2024-07-11] MEDS ORDERED: OXYMETAZOLINE HCL 0.05% NAS 1 SPRAY BTL PRN (03:30)
[2024-07-11 06:33] LABS: EOSINOPHILS # (AUTO) 1.1 (0.0-0.4); HEMATOCRIT 26.6 % (38.2-49.6); HEMOGLOBIN 8.4 g/dL (14.0-18.0); LYMPHOCYTES # (AUTO) 1.4 (1.0-3.2); LYMPHOCYTES % 34.4 % (18.0-39.1); MEAN CORPUSCULAR HEMOGLOBIN 32.9 pg (28-32); MEAN CORPUSCULAR HGB CONC 31.6 g/dL (31-35); MEAN CORPUSCULAR VOLUME 104.3 fL (81-99); MONOCYTES # (AUTO) 0.4 (0.2-0.8); MONOCYTES % 10.3 % (4.4-11.3); NEUTROPHILS # (AUTO) 1.1 (2.1-6.9); NEUTROPHILS % 26.1 % (38.7-80.0); PLATELET COUNT 85 x10e3/uL (140-360); RED BLOOD COUNT 2.55 x10e6/uL (4.3-5.7); RED CELL DISTRIBUTION WIDTH 15.9 % (11.7-14.4); WHITE BLOOD COUNT 4.07 x10e3/uL (4.8-10.8)
[2024-07-11 06:51] LABS: ANION GAP 13.9 mmol/L (8-16); CALCIUM 8.9 mg/dL (8.4-10.2); CREATININE, SERUM 1.18 mg/dL (0.72-1.25); POTASSIUM 3.9 mmol/L (3.5-5.1)
[2024-07-11 09:24] LABS: EOSINOPHILS % (MANUAL) 27 % (0-7); LYMPHOCYTES % (MANUAL) 28 % (19-48); MONOCYTES % (MANUAL) 4 % (3.4-9.0); NEUTROPHILS % (MANUAL) 41 % (40-74)
[2024-07-11 09:25] LABS: PLATELET ESTIMATE MODERATELY DECREASED; PLATELET MORPHOLOGY COMMENT NORMAL; RBC MORPHOLOGY COMMENT NORMAL
[2024-07-12] VITALS (14 sets, daily range): BP systolic 109–148; BP diastolic 51–72; PULSE 59–75; RESP 18–20; TEMP 98–98.4; O2SAT 96–100
[2024-07-12 07:14] LABS: BASOPHILS % 0.8 % (0.0-1.0); EOSINOPHILS # (AUTO) 0.9 (0.0-0.4); EOSINOPHILS % 24.5 % (0.0-6.0); HEMATOCRIT 26.2 % (38.2-49.6); HEMOGLOBIN 8.3 g/dL (14.0-18.0); LYMPHOCYTES # (AUTO) 1.2 (1.0-3.2); LYMPHOCYTES % 30.6 % (18.0-39.1); MEAN CORPUSCULAR HEMOGLOBIN 33.2 pg (28-32); MEAN CORPUSCULAR HGB CONC 31.7 g/dL (31-35); MEAN CORPUSCULAR VOLUME 104.8 fL (81-99); MONOCYTES # (AUTO) 0.4 (0.2-0.8); MONOCYTES % 10.4 % (4.4-11.3); NEUTROPHILS # (AUTO) 1.3 (2.1-6.9); NEUTROPHILS % 33.4 % (38.7-80.0); PLATELET COUNT 80 x10e3/uL (140-360); RED CELL DISTRIBUTION WIDTH 15.2 % (11.7-14.4); WHITE BLOOD COUNT 3.76 x10e3/uL (4.8-10.8)
[2024-07-12 07:27] LABS: ANION GAP 10.8 mmol/L (8-16); CALCIUM 8.7 mg/dL (8.4-10.2); CREATININE, SERUM 1.09 mg/dL (0.72-1.25); POTASSIUM 3.8 mmol/L (3.5-5.1)
[2024-07-12 09:16] LABS: EOSINOPHILS % (MANUAL) 27 % (0-7); LYMPHOCYTES % (MANUAL) 23 % (19-48); MONOCYTES % (MANUAL) 12 % (3.4-9.0); NEUTROPHILS % (MANUAL) 38 % (40-74); PLATELET ESTIMATE MODERATELY DECREASED
[2024-07-12 09:17] LABS: PLATELET MORPHOLOGY COMMENT NORMAL; RBC MORPHOLOGY COMMENT NORMAL
[2024-07-12] MEDS: ALBUTEROL/IPRATROPIUM 3 ML NEB NEB SCH (13:08)
[2024-07-12] MEDS: FUROSEMIDE INJ 10 MG/ML 4 ML VIAL IV SCH (17:45)
[2024-07-12] MEDS: MUPIROCIN 2% OINT 22 GM TUBE TOP SCH (17:46)
[2024-07-12] MEDS: Morphine 2mg Syringe 2 MG/ML SYR IV ONE (19:17)
[2024-07-13] VITALS (12 sets, daily range): BP systolic 127–150; BP diastolic 60–73; PULSE 63–77; RESP 18–20; TEMP 97.8–99.3; O2SAT 96–100
[2024-07-13 06:39] LABS: BASOPHILS % 0.9 % (0.0-1.0); EOSINOPHILS # (AUTO) 1.3 (0.0-0.4); EOSINOPHILS % 29.2 % (0.0-6.0); HEMATOCRIT 25.9 % (38.2-49.6); LYMPHOCYTES # (AUTO) 1.6 (1.0-3.2); LYMPHOCYTES % 36.8 % (18.0-39.1); MEAN CORPUSCULAR HEMOGLOBIN 32.4 pg (28-32); MEAN CORPUSCULAR HGB CONC 30.9 g/dL (31-35); MEAN CORPUSCULAR VOLUME 104.9 fL (81-99); MONOCYTES # (AUTO) 0.4 (0.2-0.8); MONOCYTES % 9.5 % (4.4-11.3); NEUTROPHILS % 23.4 % (38.7-80.0); RED BLOOD COUNT 2.47 x10e6/uL (4.3-5.7); RED CELL DISTRIBUTION WIDTH 15.1 % (11.7-14.4); WHITE BLOOD COUNT 4.32 x10e3/uL (4.8-10.8)
[2024-07-13 06:40] LABS: PLATELET COUNT 74 x10e3/uL (140-360)
[2024-07-13 06:51] LABS: ANION GAP 10.6 mmol/L (8-16); CALCIUM 8.6 mg/dL (8.4-10.2); CREATININE, SERUM 1.12 mg/dL (0.72-1.25); POTASSIUM 3.6 mmol/L (3.5-5.1)
[2024-07-13 09:56] LABS: BASOPHILS % (MANUAL) 2 % (0-1.5); EOSINOPHILS % (MANUAL) 28 % (0-7); HYPOCHROMASIA SLIGHT; LYMPHOCYTES % (MANUAL) 34 % (19-48); MONOCYTES % (MANUAL) 10 % (3.4-9.0); NEUTROPHILS % (MANUAL) 26 % (40-74); PLATELET ESTIMATE MODERATELY DECREASED; PLATELET MORPHOLOGY COMMENT NORMAL; RBC MORPHOLOGY COMMENT ABNORMAL
[2024-07-13] MEDS: METOLAZONE 5 MG TAB PO ONE (16:18)
[2024-07-14] VITALS (12 sets, daily range): BP systolic 110–154; BP diastolic 45–71; PULSE 65–77; RESP 16–22; TEMP 97.1–98.4; O2SAT 94–100
[2024-07-14 06:50] LABS: BASOPHILS % 0.8 % (0.0-1.0); EOSINOPHILS % 21.1 % (0.0-6.0); HEMATOCRIT 25.5 % (38.2-49.6); LYMPHOCYTES # (AUTO) 1.9 (1.0-3.2); LYMPHOCYTES % 40.6 % (18.0-39.1); MEAN CORPUSCULAR HEMOGLOBIN 33.1 pg (28-32); MEAN CORPUSCULAR HGB CONC 31.4 g/dL (31-35); MEAN CORPUSCULAR VOLUME 105.4 fL (81-99); MONOCYTES # (AUTO) 0.4 (0.2-0.8); MONOCYTES % 8.6 % (4.4-11.3); NEUTROPHILS # (AUTO) 1.4 (2.1-6.9); NEUTROPHILS % 28.7 % (38.7-80.0); PLATELET COUNT 72 x10e3/uL (140-360); RED BLOOD COUNT 2.42 x10e6/uL (4.3-5.7); RED CELL DISTRIBUTION WIDTH 15.4 % (11.7-14.4); WHITE BLOOD COUNT 4.78 x10e3/uL (4.8-10.8)
[2024-07-14 07:08] LABS: ANION GAP 13.6 mmol/L (8-16); CALCIUM 8.6 mg/dL (8.4-10.2); CREATININE, SERUM 1.18 mg/dL (0.72-1.25); POTASSIUM 3.6 mmol/L (3.5-5.1)
[2024-07-14 11:37] LABS: ANISOCYTOSIS SLIGHT; EOSINOPHILS % (MANUAL) 20 % (0-7); LYMPHOCYTES % (MANUAL) 41 % (19-48); MONOCYTES % (MANUAL) 4 % (3.4-9.0); NEUTROPHILS % (MANUAL) 34 % (40-74); PLATELET ESTIMATE MODERATELY DECREASED; PLATELET MORPHOLOGY COMMENT NORMAL; REACTIVE LYMPHOCYTES 1
[2024-07-14] MEDS: METOLAZONE 5 MG TAB PO ONE (20:58)
[2024-07-14] MEDS: MELATONIN 3 MG TAB PO PRN (20:58)
[2024-07-14] MEDS: TRAMADOL HCL 50 MG TAB PO PRN (20:58)
[2024-07-15] VITALS (9 sets, daily range): BP systolic 120–148; BP diastolic 47–63; PULSE 68–93; RESP 18–22; TEMP 98–98.4; O2SAT 94–100
[2024-07-15 07:01] LABS: ANION GAP 11.6 mmol/L (8-16); CALCIUM 8.6 mg/dL (8.4-10.2); CREATININE, SERUM 1.2 mg/dL (0.72-1.25); POTASSIUM 3.6 mmol/L (3.5-5.1)
[2024-07-15 08:11] LABS: BASOPHILS % 0.2 % (0.0-1.0); EOSINOPHILS # (AUTO) 1.2 (0.0-0.4); EOSINOPHILS % 22.8 % (0.0-6.0); HEMATOCRIT 25.8 % (38.2-49.6); LYMPHOCYTES # (AUTO) 2.1 (1.0-3.2); LYMPHOCYTES % 39.6 % (18.0-39.1); MEAN CORPUSCULAR HEMOGLOBIN 32.7 pg (28-32); MEAN CORPUSCULAR VOLUME 105.3 fL (81-99); MONOCYTES # (AUTO) 0.5 (0.2-0.8); MONOCYTES % 8.9 % (4.4-11.3); NEUTROPHILS # (AUTO) 1.5 (2.1-6.9); NEUTROPHILS % 28.3 % (38.7-80.0); PLATELET COUNT 76 x10e3/uL (140-360); RED BLOOD COUNT 2.45 x10e6/uL (4.3-5.7); WHITE BLOOD COUNT 5.18 x10e3/uL (4.8-10.8)
[2024-07-15 11:17] LABS: BASOPHILS % (MANUAL) 1 % (0-1.5); EOSINOPHILS % (MANUAL) 27 % (0-7); LYMPHOCYTES % (MANUAL) 26 % (19-48); MONOCYTES % (MANUAL) 5 % (3.4-9.0); NEUTROPHILS % (MANUAL) 39 % (40-74); PLATELET ESTIMATE MARKEDLY DECREASED; PLATELET MORPHOLOGY COMMENT NORMAL; REACTIVE LYMPHOCYTES 2
[2024-07-15 11:18] LABS: HYPOCHROMASIA MARKED
[2024-07-15] MEDS ORDERED: AMOX TR-K CLV1 EAC2 PO (11:24)
[2024-07-15] MEDS ORDERED: LASIX40 MG PO (11:24)
== END 2024-07-15 14:00 | DRG 291 ==
LOC: ER 18:31 → ERHOLD 20:31 → MED/SURG3 21:17
PROVIDERS: ADMIT Internal Medicine; ATTEND Internal Medicine
PROC: 3E0333Z Introduction of Anti-inflammatory into Peripheral Vein, Percutaneous Approach (ICD-10-PCS; 2024-07-06)
PROC: 30233N1 Transfusion of Nonautologous Red Blood Cells into Peripheral Vein, Percutaneous Approach (ICD-10-PCS; 2024-07-07)
PROC: 02HV33Z Insertion of Infusion Device into Superior Vena Cava, Percutaneous Approach (ICD-10-PCS; 2024-07-08)
PROC: 093K8ZZ Control Bleeding in Nasal Mucosa and Soft Tissue, Via Natural or Artificial Opening Endoscopic (ICD-10-PCS; principal; 2024-07-11)
DX: I13.0 Hypertensive heart and chronic kidney disease with heart failure and stage 1 through stage 4 chronic kidney disease, or unspecified chronic kidney disease (principal); I50.33 Acute on chronic diastolic (congestive) heart failure; D62 Acute posthemorrhagic anemia; L03.116 Cellulitis of left lower limb; L03.115 Cellulitis of right lower limb; D72.19 Other eosinophilia; Z99.81 Dependence on supplemental oxygen; I83.018 Varicose veins of right lower extremity with ulcer other part of lower leg; D69.59 Other secondary thrombocytopenia; R04.0 Epistaxis; I35.0 Nonrheumatic aortic (valve) stenosis; R53.81 Other malaise; D50.9 Iron deficiency anemia, unspecified; N18.31 Chronic kidney disease, stage 3a; I87.2 Venous insufficiency (chronic) (peripheral); I73.9 Peripheral vascular disease, unspecified; K59.00 Constipation, unspecified; B95.5 Unspecified streptococcus as the cause of diseases classified elsewhere; B96.5 Pseudomonas (aeruginosa) (mallei) (pseudomallei) as the cause of diseases classified elsewhere; E66.01 Morbid (severe) obesity due to excess calories; Z68.32 Body mass index [BMI] 32.0-32.9, adult; Z53.09 Procedure and treatment not carried out because of other contraindication; Z79.82 Long term (current) use of aspirin; Z89.432 Acquired absence of left foot; Z88.7 Allergy status to serum and vaccine
CPT/HCPCS: 36415; 36569; 71045; 80048; 80053; 82550; 82607; 82728; 82746; 83540; 83735; 83880; 84466; 84484; 85007; 85025; 85027; 85045; 85610; 85730; 86022; 86850; 86900; 86920; 87040; 87071; 87205; 93005; 93306; 93925; 93970; 94640; 94799; 99252; 99284; J1756; J1940; J2270; J2470; J2543; J3420; J7050; P9016

== ENCOUNTER 2024-07-29 16:18 | Inpatient (IN) | payer MEDICARE ==
[~2024-07-29] VITALS: Ht 172.7 cm; Wt 97.5 kg
[~2024-07-29 16:18] MED LIST changes: +AMOX TR-K CLV1 EAC2 PO; +LASIX40 MG PO
[2024-07-29 16:41] VITALS: RESP 20; TEMP 97.7
[2024-07-29 17:23] LABS: BASOPHILS # (AUTO) 0.1 (0.0-0.1); BASOPHILS % 1.2 % (0.0-1.0); EOSINOPHILS # (AUTO) 0.7 (0.0-0.4); HEMATOCRIT 31.9 % (38.2-49.6); HEMOGLOBIN 9.9 g/dL (14.0-18.0); LYMPHOCYTES # (AUTO) 1.7 (1.0-3.2); LYMPHOCYTES % 28.5 % (18.0-39.1); MEAN CORPUSCULAR HEMOGLOBIN 32.8 pg (28-32); MEAN CORPUSCULAR VOLUME 105.6 fL (81-99); MONOCYTES # (AUTO) 0.6 (0.2-0.8); MONOCYTES % 10.4 % (4.4-11.3); NEUTROPHILS # (AUTO) 2.8 (2.1-6.9); NEUTROPHILS % 47.6 % (38.7-80.0); PLATELET COUNT 102 x10e3/uL (140-360); RED BLOOD COUNT 3.02 x10e6/uL (4.3-5.7); RED CELL DISTRIBUTION WIDTH 15.3 % (11.7-14.4); WHITE BLOOD COUNT 5.94 x10e3/uL (4.8-10.8)
[2024-07-29 17:42] LABS: ANION GAP 17.1 mmol/L (8-16); CALCIUM 9.6 mg/dL (8.4-10.2); CREATININE, SERUM 1.09 mg/dL (0.72-1.25); POTASSIUM 5.1 mmol/L (3.5-5.1)
[2024-07-29 17:48] LABS: TROPONIN I 0.03 ng/mL (0-0.300)
[2024-07-29] MEDS ORDERED: IOPAMIDOL 370 MG/ML 100 ML INFUS..BTL INJ ONE (19:10)
[2024-07-29 20:10] VITALS: PULSE 90; RESP 20; O2SAT 94
[2024-07-29] MEDS: FUROSEMIDE INJ 10 MG/ML 4 ML VIAL IV SCH (20:57)
[2024-07-29 21:30] VITALS: BP 159/78; PULSE 93; RESP 20; TEMP 98.6; O2SAT 99
[2024-07-29 23:30] VITALS: BP 157/65; PULSE 89; RESP 18; TEMP 98.3; O2SAT 99
[2024-07-30 03:00] VITALS: BP 142/62; PULSE 88; RESP 20; TEMP 98.1; O2SAT 97
[2024-07-30 03:10] LABS: TROPONIN I 0.033 ng/mL (0-0.300)
[2024-07-30] MEDS ORDERED: TRAMADOL HCL 50 MG TAB PO PRN (05:15)
[2024-07-30] MEDS: Morphine 4mg INJECTION 4 MG/ML INJ IV PRN (05:24)
[2024-07-30 05:45] LABS: BASOPHILS # (AUTO) 0.1 (0.0-0.1); BASOPHILS % 0.9 % (0.0-1.0); EOSINOPHILS # (AUTO) 1.1 (0.0-0.4); EOSINOPHILS % 16.1 % (0.0-6.0); HEMATOCRIT 28.7 % (38.2-49.6); LYMPHOCYTES # (AUTO) 2.2 (1.0-3.2); LYMPHOCYTES % 30.9 % (18.0-39.1); MEAN CORPUSCULAR HGB CONC 31.4 g/dL (31-35); MEAN CORPUSCULAR VOLUME 105.1 fL (81-99); MONOCYTES # (AUTO) 0.9 (0.2-0.8); MONOCYTES % 12.5 % (4.4-11.3); NEUTROPHILS # (AUTO) 2.7 (2.1-6.9); NEUTROPHILS % 39.3 % (38.7-80.0); PLATELET COUNT 106 x10e3/uL (140-360); RED BLOOD COUNT 2.73 x10e6/uL (4.3-5.7); RED CELL DISTRIBUTION WIDTH 15.4 % (11.7-14.4); WHITE BLOOD COUNT 6.96 x10e3/uL (4.8-10.8)
[2024-07-30 05:58] LABS: INR 1.41; PROTHROMBIN TIME 17.9 seconds (11.9-14.5)
[2024-07-30 05:59] LABS: PARTIAL THROMBOPLASTIN TIME 41.1 seconds (23.8-35.5)
[2024-07-30 06:08] LABS: ALBUMIN 2.5 g/dL (3.5-5.0); ALBUMIN/GLOBULIN RATIO 0.6 (0.8-2.0); ANION GAP 15.2 mmol/L (8-16); BILIRUBIN,TOTAL 1.8 mg/dL (0.2-1.2); CALCIUM 9.3 mg/dL (8.4-10.2); POTASSIUM 4.2 mmol/L (3.5-5.1); TOTAL PROTEIN 6.4 g/dL (6.5-8.1)
[2024-07-30 06:16] LABS: TROPONIN I 0.033 ng/mL (0-0.300)
[2024-07-30] MEDS: ASPIRIN 81 MG CHEW TAB PO SCH (08:31)
[2024-07-30] MEDS: FUROSEMIDE INJ 10 MG/ML 4 ML VIAL IV SCH (08:31)
[2024-07-30] MEDS: CARVEDILOL 3.125 MG TAB PO SCH (08:31)
[2024-07-30 09:00] VITALS: BP 159/78; PULSE 93; RESP 20; TEMP 98.6; O2SAT 99
[2024-07-30 09:32] VITALS: PULSE 81; RESP 18; O2SAT 96
[2024-07-30 12:25] VITALS: BP 124/52; PULSE 81; RESP 18; TEMP 99.7; O2SAT 99
[2024-07-30 12:38] LABS: BODY FLUID APPEARANCE CLEAR; BODY FLUID COLOR YELLOW; BODY FLUID TYPE PLEURAL
[2024-07-30] MEDS ORDERED: FUROSEMIDE10 MG/1 M1 IV (14:13)
[2024-07-30] MEDS ORDERED: Morphine 4mg INJECTION IV (14:13)
[2024-07-30] MEDS: GABAPENTIN 100 MG CAP PO SCH (15:37)
[2024-07-30] MEDS: TRAMADOL HCL 50 MG TAB PO PRN (15:39)
[2024-07-30 15:45] LABS: EOSINOPHILS,BODY FLUID 1 %; LYMPHOCYTES,BODY FLUID 38 %; MONO/MACROPHG,BODY FLUID 57 %; NEUTROPHILS,BODY FLUID 4 %; TOTAL CELLS COUNTED (DIFF) 100
[2024-07-30 15:54] LABS: RBC,BODY FLUID < 2000 cells/uL; WBC,BODY FLUID 142 cells/uL
[2024-07-30 16:46] LABS: TROPONIN I 0.028 ng/mL (0-0.300)
[2024-07-31 17:49] LABS: TOTAL PROTEIN,BODY FLUID 1.3 g/dL
== END 2024-07-30 15:55 | disposition short-term general hospital (02) | DRG 291 ==
LOC: ER 16:54 → ERHOLD 20:05 → MED/SURG2 21:15 → OBSVTOIN 07-30 09:31
PROVIDERS: ADMIT Internal Medicine; ATTEND Internal Medicine
PROC: 0W993ZZ Drainage of Right Pleural Cavity, Percutaneous Approach (ICD-10-PCS; principal; 2024-07-30)
DX: I13.0 Hypertensive heart and chronic kidney disease with heart failure and stage 1 through stage 4 chronic kidney disease, or unspecified chronic kidney disease (principal); I50.33 Acute on chronic diastolic (congestive) heart failure; J90 Pleural effusion, not elsewhere classified; L03.115 Cellulitis of right lower limb; L03.116 Cellulitis of left lower limb; D69.6 Thrombocytopenia, unspecified; D63.1 Anemia in chronic kidney disease; Z66 Do not resuscitate; K74.60 Unspecified cirrhosis of liver; I35.0 Nonrheumatic aortic (valve) stenosis; N18.31 Chronic kidney disease, stage 3a; R53.81 Other malaise; H91.91 Unspecified hearing loss, right ear; E66.01 Morbid (severe) obesity due to excess calories; Z68.32 Body mass index [BMI] 32.0-32.9, adult; Z79.82 Long term (current) use of aspirin; Z89.432 Acquired absence of left foot; Z88.7 Allergy status to serum and vaccine
CPT/HCPCS: 32555; 36415; 51700; 71045; 71046; 71260; 74470; 80048; 80053; 82550; 83615; 83880; 84157; 84478; 84484; 85025; 85379; 85610; 85730; 87070; 87205; 89051; 93005; 94799; 99284; C1729; G0378; J1940; J2270; Q9967